=== PATIENT | male | born 1975 | race African-American/Black ===

== ENCOUNTER 2019-11-10 08:20 | Emergency (ER) | payer OTHER ==
[~2019-11-10] VITALS: Ht 170.2 cm; Wt 64.0 kg
[2019-11-10] MEDS ORDERED: KETOROLAC 60MG/2ML VIAL IM ONE (09:15)
[2019-11-10 10:50] VITALS: BP 128/74
== END 2019-11-10 11:05 | disposition home or self-care (01) ==
LOC: ER 08:20
DX: S83.92XA Sprain of unspecified site of left knee, initial encounter (principal); M79.605 Pain in left leg; X50.1XXA Overexertion from prolonged static or awkward postures, initial encounter; Y93.89 Activity, other specified; Y92.018 Other place in single-family (private) house as the place of occurrence of the external cause
CPT/HCPCS: 73590; 96372; 99283; J1885

== ENCOUNTER 2022-01-27 14:25 | Inpatient (IN) | payer MEDICAID, OTHER ==
[~2022-01-27] VITALS: Ht 170.2 cm; Wt 59.9 kg
[2022-01-27] MEDS ORDERED: ASPIRIN 81MG TABLET PO ONE (15:00)
[2022-01-27] MEDS ORDERED: NITROGLYCERIN 0.4MG TABLET SL SL PRN ×2 (15:00→23:45)
[2022-01-27 15:40] LABS: BASOPHILS % 1.3 % (0.0-2.0); EOSINOPHILS % 2.5 % (0.0-5.0); HEMATOCRIT. 42.3 % (42.0-52.0); HEMOGLOBIN. 14.7 g/dL (14.0-18.0); LYMPHOCYTES % 26.9 % (20.0-50.0); MEAN CORPUSCULAR HEMOGLOBIN 34.4 pg (28.0-32.0); MEAN CORPUSCULAR VOLUME 99.2 fL (80.0-94.0); MEAN PLATELET VOLUME 6.8 fl (7.4-10.4); MONOCYTES % 8.2 % (2.0-8.0); NEUTROPHILS % 61.1 % (40.0-76.0); PLATELET 230 x1000/uL (130-400); RED BLOOD CELL COUNT 4.27 mill/uL (4.7-6.1); RED CELL DISTRIBUTION WIDTH 14.7 % (11.6-14.6)
[2022-01-27 15:49] LABS: CHLORIDE 105 mEq/L (98-107)
[2022-01-27 15:58] LABS: ETHANOL BLOOD < 10 mg/dL
[2022-01-27] MEDS ORDERED: ASPIRIN 81MG TABLET PO NR (16:15)
[2022-01-27 18:20] LABS: *AMPHETAMINES SCREEN URINE NEGATIVE (NEGATIVE); *BARBITURATES SCREEN URINE NEGATIVE (NEGATIVE); *BENZODIAZEPINES SCREEN URINE NEGATIVE (NEGATIVE); *COCAINE SCREEN URINE NEGATIVE (NEGATIVE); CANNABINOID URINE SCREEN NEGATIVE (NEGATIVE); METHADONE URINE SCREEN NEGATIVE (NEGATIVE); OPIATES URINE SCREEN NEGATIVE (NEGATIVE); PHENCYCLIDINE URINE SCREEN NEGATIVE (NEGATIVE)
[2022-01-27] MEDS ORDERED: SODIUM CHLORIDE 0.9% 1,000 ML IV ONE (18:30)
[2022-01-27] MEDS ORDERED: ONDANSETRON HCL 4MG/2ML INJ IV ONE (18:30)
[2022-01-27 22:30] VITALS: BP 108/74
[2022-01-28] MEDS ORDERED: HYDROCODONE/ACETAMINOPHEN 5/325MG TABLET PO PRN (03:15)
[2022-01-28 08:00] VITALS: BP 117/73
[2022-01-28] MEDS: METOPROLOL TARTRATE 25MG TABLET PO SCH ×2 (10:04→22:02)
[2022-01-28] MEDS: ASPIRIN 81MG EC TABLET PO SCH (10:05)
[2022-01-28 12:00] VITALS: BP 120/74
[2022-01-28] MEDS ORDERED: LORAZEPAM 2MG/ML CPJ IV PRN (12:15)
[2022-01-28] MEDS ORDERED: FOLIC ACID 1 MG, THIAMINE HCL 100 MG, MVI, ADULT NO.1 10 ML in DEXTROSE 5% WATER 1,000 ML IV NR ×4 (14:00)
[2022-01-28] MEDS: NICOTINE 14MG PATCH TD SCH (14:16)
[2022-01-28 16:00] VITALS: BP 128/80
[2022-01-28 20:00] VITALS: BP 142/82
[2022-01-28] MEDS ORDERED: FAMOTIDINE 20MG TABLET PO SCH (21:00)
[2022-01-28] MEDS: DOCUSATE SODIUM 250MG CAPSULE PO SCH (22:01)
[2022-01-28] MEDS ORDERED: NALOXONE HCL 0.4MG/ML VIAL IV PRN (23:15)
[2022-01-29] VITALS: BP 133/93
[2022-01-29 04:00] VITALS: BP 133/70
[2022-01-29 04:01] VITALS: BP 125/71
[2022-01-29 08:00] VITALS: BP_SYST 117; BP_SYST 121; BP_DIAS 85; BP_DIAS 90
[2022-01-29] MEDS: ASPIRIN 81MG EC TABLET PO SCH (09:06)
[2022-01-29] MEDS: DOCUSATE SODIUM 250MG CAPSULE PO SCH (09:06)
[2022-01-29] MEDS: NICOTINE 14MG PATCH TD SCH (09:06)
[2022-01-29] MEDS: METOPROLOL TARTRATE 25MG TABLET PO SCH (09:07)
[2022-01-29 12:00] VITALS: BP 121/85
[2022-01-29] MEDS ORDERED: METO25TA6 PO (12:52)
[2022-01-29] MEDS ORDERED: ASPI-1406 PO (12:52)
[2022-01-29] MEDS ORDERED: NICO-681 TD (12:52)
[2022-01-29 13:26] VITALS: BP 121/85
[2022-01-29] MEDS ORDERED: CHLORDIAZEPOXIDE 25MG CAPSULE PO SCH (14:00)
== END 2022-01-29 14:48 | disposition home or self-care (01) | DRG 203 ==
LOC: ER 14:25 → 8WST 19:29 → ENRESERV 19:50
PROVIDERS: ADMIT Internal Medicine; ATTEND Internal Medicine
DX: M94.0 Chondrocostal junction syndrome [Tietze] (principal); F10.10 Alcohol abuse, uncomplicated; F17.210 Nicotine dependence, cigarettes, uncomplicated; Z20.822 Contact with and (suspected) exposure to COVID-19; I10 Essential (primary) hypertension; R74.01 Elevation of levels of liver transaminase levels; Z71.6 Tobacco abuse counseling; Z71.41 Alcohol abuse counseling and surveillance of alcoholic
CPT/HCPCS: 36415; 71045; 80053; 80305; 80320; 83880; 84484; 85025; 87426; 93005; 93306; 99285; C9803; J2405; J3411; J3490; J7030; J7070; G0480

== ENCOUNTER 2022-06-14 21:43 | Emergency (ER) | payer MEDICARE, MEDICAID ==
[~2022-06-14] VITALS: Ht 170.2 cm; Wt 64.0 kg
[~2022-06-14 21:43] MED LIST: ASPI-1406 PO; METO25TA6 PO; NICO-681 TD
[2022-06-14] MEDS ORDERED: NITROGLYCERIN 0.4MG TABLET SL SL PRN (22:45)
[2022-06-14] MEDS ORDERED: ASPIRIN 81MG TABLET PO ONE (22:45)
[2022-06-14 23:35] LABS: BASOPHILS % 3.3 % (0.0-2.0); EOSINOPHILS % 8.9 % (0.0-5.0); HEMATOCRIT. 40.6 % (42.0-52.0); HEMOGLOBIN. 14.1 g/dL (14.0-18.0); LYMPHOCYTES % 57.9 % (20.0-50.0); MEAN CORPUSCULAR VOLUME 100.6 fL (80.0-94.0); MEAN PLATELET VOLUME 6.5 fl (7.4-10.4); NEUTROPHILS % 22.9 % (40.0-76.0); PLATELET 184 x1000/uL (130-400); RED BLOOD CELL COUNT 4.04 mill/uL (4.7-6.1); RED CELL DISTRIBUTION WIDTH 14.5 % (11.6-14.6)
[2022-06-14 23:43] LABS: CHLORIDE 104 mEq/L (98-107)
[2022-06-14 23:54] LABS: ETHANOL BLOOD 282 mg/dL
[2022-06-15 00:56] LABS: *AMPHETAMINES SCREEN URINE NEGATIVE (NEGATIVE); *BARBITURATES SCREEN URINE NEGATIVE (NEGATIVE); *BENZODIAZEPINES SCREEN URINE NEGATIVE (NEGATIVE); *COCAINE SCREEN URINE PRESUMTIVE POSITIVE (NEGATIVE); CANNABINOID URINE SCREEN NEGATIVE (NEGATIVE); METHADONE URINE SCREEN NEGATIVE (NEGATIVE); OPIATES URINE SCREEN NEGATIVE (NEGATIVE); PHENCYCLIDINE URINE SCREEN NEGATIVE (NEGATIVE)
[2022-06-15 04:00] VITALS: BP 127/82
[2022-06-15] MEDS ORDERED: IBUP-2029 MT (15:02)
== END 2022-06-15 07:34 | disposition home or self-care (01) ==
LOC: ER 21:43
DX: F14.10 Cocaine abuse, uncomplicated (principal); F10.129 Alcohol abuse with intoxication, unspecified; R07.89 Other chest pain; Y90.8 Blood alcohol level of 240 mg/100 ml or more; F17.290 Nicotine dependence, other tobacco product, uncomplicated; I10 Essential (primary) hypertension
CPT/HCPCS: 36415; 71045; 74176; 80053; 80305; 80320; 82270; 83690; 83880; 84484; 85025; 93005; 96360; 96372; 99284; 99285; J1885; J7030; Q0162; G0480

== ENCOUNTER 2022-06-15 08:41 | Emergency (ER) | payer MEDICARE, MEDICAID ==
[~2022-06-15] VITALS: Ht 170.2 cm; Wt 59.0 kg
[2022-06-15 08:53] VITALS: BP 140/89
[2022-06-15] MEDS ORDERED: ONDANSETRON 4MG ODT PO ONE (10:30)
[2022-06-15] MEDS ORDERED: KETOROLAC 30MG/ML VIAL IM ONE (10:30)
[2022-06-15 11:38] LABS: BASOPHILS % 0.5 % (0.0-2.0); EOSINOPHILS % 1.3 % (0.0-5.0); HEMATOCRIT. 40.6 % (42.0-52.0); LYMPHOCYTES % 24.2 % (20.0-50.0); MEAN CORPUSCULAR HEMOGLOBIN 34.6 pg (28.0-32.0); MEAN CORPUSCULAR VOLUME 100.1 fL (80.0-94.0); MEAN PLATELET VOLUME 6.8 fl (7.4-10.4); MONOCYTES % 8.7 % (2.0-8.0); NEUTROPHILS % 65.3 % (40.0-76.0); PLATELET 181 x1000/uL (130-400); RED BLOOD CELL COUNT 4.06 mill/uL (4.7-6.1); RED CELL DISTRIBUTION WIDTH 14.2 % (11.6-14.6)
[2022-06-15] MEDS ORDERED: SODIUM CHLORIDE 0.9% 1,000 ML IV ONE (13:15)
[2022-06-15] MEDS ORDERED: IBUP-2029 MT (15:02)
[2022-06-15 16:37] LABS: CHLORIDE 101 mEq/L (98-107)
== END 2022-06-15 17:59 | disposition home or self-care (01) ==
LOC: ER 09:41
DX: K85.90 Acute pancreatitis without necrosis or infection, unspecified (principal); R11.2 Nausea with vomiting, unspecified; I10 Essential (primary) hypertension; Z79.899 Other long term (current) drug therapy
CPT/HCPCS: 36415; 74176; 80053; 82270; 83690; 85025; 96360; 96372; 99284; J1885; J7030; Q0162